=== PATIENT | male | born 1980 | race Caucasian/White ===

== ENCOUNTER 2020-10-03 10:56 | Outpatient (RCR) | payer OTHER | END 2020-11-23 | disposition home or self-care (01) | LOC: ONC 10:56 | PROVIDERS: ATTEND Internal Medicine Hematology & Oncology | DX: Z86.718 Personal history of other venous thrombosis and embolism (principal); Z86.711 Personal history of pulmonary embolism | CPT/HCPCS: 81240; 81241; 85300; 85302; 85305; 85610; 85613; 85705; 85730; 86147 ×2; G0463; 85220; 99213; 99214 ==